=== PATIENT | male | born 1985 | race Two or more races ===

== ENCOUNTER 2016-11-08 02:43 | Emergency (ER) | payer SELFPAY ==
[~2016-11-08] VITALS: Ht 165.1 cm; Wt 89.8 kg
[2016-11-08 03:24] VITALS: BP 159/93
[2016-11-08] MEDS ORDERED: MORP15TA PO (03:55)
--- NOTE | 2016-11-08 03:55 | PHYS DOC ---
Past Medical History Past Medical History: GERD, Hypertension Past Surgical History: Other Additional Past Surgical Histo: L HAND, L LEG Alcohol Use: Occasionally Drug Use: None Adult General Chief Complaint Chief Complaint: PAIN CONTROL HPI HPI 31-year-old male presenting to the emergency department after accidentally injuring his finger yesterday when he had an amputation injury with a yard blower. He was seen in the [facility] system. He was seen yesterday and today in a follow-up visit where they completed the amputation and a outpatient surgical center. He presents here to our emergency department today for worsening pain. The pain is in his left index finger where his surgery was today. It is sharp moderate nonradiating and without alleviating factors. Review of systems is negative for chest pain shortness of breath nausea vomiting. All other review of systems is negative unless otherwise noted in history of present illness. Pertinent physical exam findings: Patient has his left finger wrapped in a postsurgical dressing. He was instructed not to remove this dressing so I will leave it as is currently. ED course: 31-year-old male status post surgical amputation of the left index finger after a partial amputation accidentally with a yard blower yesterday. The patient was primarily here for pain control. He was given intravenous hydromorphone which improved his symptoms significantly. I also wrote him for stronger hydrocodone medication. He was then DC'd home to follow-up with his surgeon within the next 4-5 days. They were to return if their symptoms worsened or if they were concerned for any reason. [id number] discharge instructions and return precautions were given. Patient's questions were answered to their satisfaction. Patient is comfortable plan. Review of Systems Review of Systems SEE ABOVE. Current Medications Current Medications Current Medications Medications (Trade) Dose Ordered Sig/Camille Start Time Stop Time Status Last Admin Dose Admin Hydromorphone HCl (Dilaudid) 0.5 mg 1X ONCE 11/08/16 04:00 11/08/16 04:01 DC 11/08/16 03:47 0.5 MG Ondansetron HCl (Zofran Odt) 4 mg 1X ONCE 11/08/16 04:00 11/08/16 04:01 DC 11/08/16 03:47 4 MG Allergies Allergies Allergies Coded Allergies Type Severity Reaction Last Updated Verified No Known Drug Allergies 11/08/16 No Physical Exam Physical Exam Constitutional: Well developed, well nourished, no acute distress, non-toxic appearance. [] HENT: Normocephalic, atraumatic, bilateral external ears normal, oropharynx moist, no oral exudates, nose normal. [] Eyes: PERRLA, EOMI, conjunctiva normal, no discharge. [] Neck: Normal range of motion, no tenderness, supple, no stridor. [] Cardiovascular:Heart rate regular rhythm, no murmur [] Lungs & Thorax: Bilateral breath sounds clear to auscultation [] Abdomen: Bowel sounds normal, soft, no tenderness, no masses, no pulsatile masses. [] Skin: Warm, dry, no erythema, no rash. [] Back: No tenderness, no CVA tenderness. [] Extremities: No tenderness, no cyanosis, no clubbing, ROM intact, no edema. [] Neurologic: Alert and oriented X 3, normal motor function, normal sensory function, no focal deficits noted. [] Psychologic: Affect normal, judgement normal, mood normal. [] Current Patient Data Vital Signs Vital Signs Date Time Temp Pulse Resp B/P (MAP) Pulse Ox O2 Delivery O2 Flow Rate FiO2 11/08/16 03:47 98 Room Air 11/08/16 03:24 98.1 64 20 98.1 EKG EKG [] Radiology/Procedures Radiology/Procedures [] Course & Med Decision Making Course & Med Decision Making Pertinent Labs and Imaging studies reviewed. (See chart for details) [] Dragon Disclaimer Dragon Disclaimer This electronic medical record was generated, in whole or in part, using a voice recognition dictation system. Departure Departure Impression: Primary Impression: Postoperative pain Additional Impression: Postoperative pain of extremity Disposition: 01 HOME, SELF-CARE Condition: STABLE Referrals: NO PCP (PCP) SCHUYLER DAVID MD Patient Instructions: Fingertip Injuries and Amputations Additional Instructions: Thank you for allowing us to participate in your care today. Followup with your surgeon in 4-5 days. If you do not have a primary care provider you can ask for a list of our primary care providers. Return to the emergency department you have any new or concerning findings. This should be evaluated by the primary care physician and any necessary consulting services for continued management within a few days after discharge. Return to emergency room if you have any new or concerning symptoms including but not limited to fever, chills, nausea, vomiting, intractable pain, any new rashes, chest pain, shortness of air, uncontrolled bleeding, difficulty breathing, and/or vision loss. You may have been prescribed medication that can change in your level of thinking and ability to operate machinery. These medications include hydrocodone and Ativan. Also, Benadryl has been known to do this as well. Be sure to check with your pharmacist and ask if the medications you've prescribed can affect your level of consciousness. I recommend not operating heavy machinery or driving while on medication such as these. Scripts Morphine Sulfate (MORPHINE SULFATE) 15 Mg Tablet 1 TAB PO PRN Q6-8HRS Y for SEVERE PAIN, #12 TAB Prov: TITI ENNIS MD 11/08/16 Problem Qualifiers TITI ENNIS MD Nov 08, 2016 03:55
[2016-11-08] MEDS ORDERED: ONDANSETRON ODT 4 MG TAB.RAPDIS. PO ONE (04:00)
[2016-11-08] MEDS ORDERED: HYDROmorphone 2 MG/ML VIAL IM ONE (04:00)
== END 2016-11-08 04:20 | disposition home or self-care (01) ==
LOC: ER 02:43
DX: G89.18 Other acute postprocedural pain (principal); M79.645 Pain in left finger(s); I10 Essential (primary) hypertension; K21.9 Gastro-esophageal reflux disease without esophagitis
CPT/HCPCS: 96372; 99283; J1170; Q0162

== ENCOUNTER 2016-11-19 11:00 | Emergency (ER) | payer SELFPAY ==
[~2016-11-19] VITALS: Ht 167.6 cm; Wt 89.8 kg
[~2016-11-19 11:00] MED LIST: MORP15TA PO
[2016-11-19 11:46] VITALS: BP 133/82
--- NOTE | 2016-11-19 13:07 | PHYS DOC ---
Past Medical History Past Medical History: GERD, Hypertension Past Surgical History: Other Additional Past Surgical Histo: L HAND, L LEG Alcohol Use: Occasionally Drug Use: None Adult General Chief Complaint Chief Complaint: WOUND CHECK [facility] HPI Patient is a 31 year old male with no significant medical history but recently had a partial amputation of the left index finger after a blower accident 8 days ago that presents today to be evaluated for possible infection to the left index finger. Patient states the finger had dressing on for couple days. Patient states he removed the dressing today and was concerned the area could be infected. Patient denies any fever. Denies any drainage from the area. 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 Review of Systems Review of Systems Constitutional: Denies fever or chills [] Eyes: Denies change in visual acuity, redness, or eye pain [] HENT: Denies nasal congestion or sore throat [] Respiratory: Denies cough or shortness of breath [] Cardiovascular: No additional information not addressed in HPI [] GI: Denies abdominal pain, nausea, vomiting, bloody stools or diarrhea [] : Denies dysuria or hematuria [] Musculoskeletal: Denies back pain or joint pain [] Integument: Left index finger possible infection Neurologic: Denies headache, focal weakness or sensory changes [] Endocrine: Denies polyuria or polydipsia [] Allergies Allergies Allergies Coded Allergies Type Severity Reaction Last Updated Verified No Known Drug Allergies 11/08/16 No Physical Exam Physical Exam Constitutional: Well developed, well nourished, no acute distress, non-toxic appearance. [] HENT: Normocephalic, atraumatic, bilateral external ears normal, oropharynx moist, no oral exudates, nose normal. [] Eyes: PERRLA, EOMI, conjunctiva normal, no discharge. [] Neck: Normal range of motion, no tenderness, supple, no stridor. [] Cardiovascular:Heart rate regular rhythm, no murmur [] Lungs & Thorax: Bilateral breath sounds clear to auscultation [] Abdomen: Bowel sounds normal, soft, no tenderness, no masses, no pulsatile masses. [] Skin: Left index finger is amputated at the mid phalange. There is stitches over the amputation site. There is no signs of infection on the finger. The finger is not draining anything. There is no warmth or tenderness to the finger. Patient states he still has some sensation to the finger. Back: No tenderness, no CVA tenderness. [] Extremities: No tenderness, no cyanosis, no clubbing, ROM intact, no edema. [] Neurologic: Alert and oriented X 3, normal motor function, normal sensory function, no focal deficits noted. [] Psychologic: Affect normal, judgement normal, mood normal. [] Current Patient Data Vital Signs Vital Signs Date Time Temp Pulse Resp B/P (MAP) Pulse Ox O2 Delivery O2 Flow Rate FiO2 11/19/16 11:46 98.9 72 18 99 Room Air 98.9 EKG EKG [] Radiology/Procedures Radiology/Procedures [] Course & Med Decision Making Course & Med Decision Making Pertinent Labs and Imaging studies reviewed. (See chart for details) Patient is in the ED to be evaluated for left index finger possible infection after amputation 8 days ago due to a blower accident. The left index finger was assessed in ED. There is no signs of infection. Patient was reassured and discharged. He has an appointment with his own hand surgeon on Thursday this week which is 2 days out. He was provided return precautions and discharged in stable condition. Dragon Disclaimer Dragon Disclaimer This electronic medical record was generated, in whole or in part, using a voice recognition dictation system. Departure Departure Impression: Primary Impression: Amputated finger Additional Impression: Visit for wound check Disposition: HOME, SELF-CARE Condition: STABLE Referrals: NO PCP (PCP) follow up with your doctor on Thursday this Patient Instructions: Fingertip Injuries and Amputations Additional Instructions: You finger appears well. There is no signs of infection. Keep the area clean and dry. Follow-up with your own doctor in 2 days that is Thursday this week. Come back to the ED if you have any concerns. Signs of infection will include but are not limited to increased redness warmth or yellow/odorous/increased drainage from the finger. Fever will also be a sign of infection. Problem Qualifiers Primary Impression: Amputated finger Encounter type: subsequent encounter Qualified Codes: S68.119D - Complete traumatic metacarpophalangeal amputation of unspecified finger, subsequent encounter LULÚ CARLSON APRN Nov 19, 2016 13:07
== END 2016-11-19 13:35 | disposition home or self-care (01) ==
LOC: ER 11:00
DX: S68.119D Complete traumatic metacarpophalangeal amputation of unspecified finger, subsequent encounter (principal); I10 Essential (primary) hypertension; K21.9 Gastro-esophageal reflux disease without esophagitis; Z98.890 Other specified postprocedural states; X58.XXXD Exposure to other specified factors, subsequent encounter
CPT/HCPCS: 99281